=== PATIENT | male | born 1975 | race Caucasian/White ===

== ENCOUNTER 2021-06-21 14:21 | Emergency (ER) | payer MEDICAID, SELFPAY ==
[~2021-06-21] VITALS: Ht 172.7 cm; Wt 72.6 kg
--- NOTE | 2021-06-21 14:30 | NUR ---
Pt brought by self, A&Ox4, pt presents to ER with L ring finger pain after lifting a bed, skin pink and warm, cap refill <3, VSS.
--- NOTE | 2021-06-21 14:30 | NUR ---
Dr Valente evaluating patient in the tent
[2021-06-21 14:43] VITALS: BP_SYST 142
[2021-06-21 17:53] VITALS: BP_SYST 142
--- NOTE | 2021-06-21 17:54 | NUR ---
Patient given written and verbal discharge instructions and verbalizes understanding. ER MD discussed with patient the results and treatment provided. Patient in stable condition. ID arm band removed. No Rx given. Patient educated on pain management and to follow up with PMD. Pain Scale 2/10. Opportunity for questions provided and answered. Medication side effect fact sheet provided.
== END 2021-06-21 17:53 | disposition home or self-care (01) ==
LOC: SED 14:21
DX: S60.041A Contusion of right ring finger without damage to nail, initial encounter (principal); E78.00 Pure hypercholesterolemia, unspecified; W23.0XXA Caught, crushed, jammed, or pinched between moving objects, initial encounter; Y93.89 Activity, other specified; Y92.89 Other specified places as the place of occurrence of the external cause; Y99.8 Other external cause status
CPT/HCPCS: 99283

== ENCOUNTER 2022-10-14 23:59 | Emergency (ER) | payer MEDICAID ==
[~2022-10-14] VITALS: Ht 172.7 cm; Wt 68.9 kg
[2022-10-15 00:07] VITALS: BP_SYST 139
[2022-10-15 02:23] VITALS: BP_SYST 139
== END 2022-10-15 02:40 | disposition home or self-care (01) ==
LOC: SED 23:59
DX: K30 Functional dyspepsia (principal); R06.02 Shortness of breath; R05.9 Cough, unspecified; Z79.899 Other long term (current) drug therapy
CPT/HCPCS: 71045; 99283